=== PATIENT | male | born 1955 ===

== ENCOUNTER 2024-09-28 12:03 | Outpatient (RCR) | payer MEDICARE, SELFPAY | END 2024-09-28 23:59 | disposition home or self-care (01) | LOC: RPT 12:03 | PROVIDERS: ATTENDING PHYSICIAN Student in an Organized Health Care Education/Training Program | DX: M47.26 Other spondylosis with radiculopathy, lumbar region (principal); Z73.6 Limitation of activities due to disability | CPT/HCPCS: 97110; 97140; 97162 ==

== ENCOUNTER 2024-10-06 10:05 | Outpatient (RCR) | payer MEDICARE, SELFPAY | END 2024-10-06 23:59 | disposition home or self-care (01) | LOC: RPT 10:05 | PROVIDERS: ATTENDING PHYSICIAN Student in an Organized Health Care Education/Training Program | DX: M47.26 Other spondylosis with radiculopathy, lumbar region (principal); M47.816 Spondylosis without myelopathy or radiculopathy, lumbar region; Z73.6 Limitation of activities due to disability | CPT/HCPCS: 97110 ==